=== PATIENT | female | born 1980 | race Two or more races ===

== ENCOUNTER 2024-06-08 12:12 | Emergency (ER) | payer SELFPAY ==
[~2024-06-08] VITALS: Ht 165.1 cm; Wt 73.0 kg
[2024-06-08 12:15] VITALS: BP 133/78; PULSE 78; RESP 16; TEMP 98.5; O2SAT 99
== END 2024-06-08 13:02 | disposition left against medical advice (07) ==
LOC: EMS 12:12
DX: R51.9 Headache, unspecified (principal); Z53.21 Procedure and treatment not carried out due to patient leaving prior to being seen by health care provider